=== PATIENT | female | born 1965 ===

== ENCOUNTER → 2021-08-03 | Outpatient (CLI) | payer BC, MEDICARE | END | disposition home or self-care (01) | LOC: LAB SHORT 11:04 → PLD 11:04 | DX: L08.9 Local infection of the skin and subcutaneous tissue, unspecified (principal) | CPT/HCPCS: 88305 ==

== ENCOUNTER → 2022-02-04 | Outpatient (CLI) | payer BC, MEDICARE ==
[2022-02-04 11:08] LABS: Source, Urine Clean Catch
[2022-02-04 13:04] LABS: Appearance, Urine Clear (Clear); Bilirubin, Urine Neg (Neg); Blood, Urine 1+ (Neg); Color, Urine Yellow (P-Yellow); Glucose Qualitative, Urine Neg (Neg); Ketones, Urine Neg (Neg); Leukocyte Esterase, Urine 2+ (Neg); Nitrite, Urine Neg (Neg); Protein, Urine Neg (Neg); Urobilinogen, Urine NORM (Normal)
[2022-02-04 14:34] LABS: Bacteria Few /hpf; Renal Epithelial Rare /hpf (0-Rare); Squamous Epithelial Cells Few /hpf (Few); White Blood Cells, Urine 25-50 /hpf (0-5)
== END ==
LOC: LAB 11:07 → LAB SHORT 11:07
PROVIDERS: Urology
DX: N39.0 Urinary tract infection, site not specified (principal)
CPT/HCPCS: 81001; 87077; 87086; 87186

== ENCOUNTER → 2022-10-04 | Outpatient (CLI) | payer BC, MEDICARE ==
[2022-10-04 09:01] LABS: Source, Urine Clean Catch
[2022-10-04 09:31] LABS: Appearance, Urine Hazy (Clear); Bilirubin, Urine Neg (Neg); Blood, Urine 3+ (Neg); Color, Urine Yellow (P-Yellow); Glucose Qualitative, Urine Neg (Neg); Ketones, Urine Neg (Neg); Leukocyte Esterase, Urine 3+ (Neg); Nitrite, Urine Neg (Neg); Protein, Urine 1+ (Neg); Urobilinogen, Urine NORM (Normal)
[2022-10-04 09:40] LABS: Bacteria Few /hpf; Squamous Epithelial Cells Rare /hpf (Few); White Blood Cells, Urine 50-100 /hpf (0-5)
== END | disposition home or self-care (01) ==
LOC: LAB 08:59 → LAB SHORT 08:59
PROVIDERS: Urology
DX: N39.0 Urinary tract infection, site not specified (principal)
CPT/HCPCS: 81001; 87077; 87086; 87186

== ENCOUNTER → 2023-02-10 | Outpatient (CLI) | payer BC, MEDICARE ==
[2023-02-14 21:00] LABS: CALPROTECTIN,FECAL <5 ug/g (<=49)
== END ==
LOC: LAB SHORT 12:21 → LAB 12:21
PROVIDERS: Naturopath
DX: E83.52 Hypercalcemia (principal); K52.9 Noninfective gastroenteritis and colitis, unspecified; R79.89 Other specified abnormal findings of blood chemistry
CPT/HCPCS: 83993

== ENCOUNTER → 2023-03-14 | Outpatient (CLI) | payer BC, MEDICARE ==
[2023-03-14 15:36] LABS: Appearance, Urine Clear (Clear); Bilirubin, Urine Neg (Neg); Blood, Urine Neg (Neg); Color, Urine Yellow (P-Yellow); Glucose Qualitative, Urine Neg (Neg); Ketones, Urine Neg (Neg); Leukocyte Esterase, Urine Neg (Neg); Nitrite, Urine Neg (Neg); Protein, Urine Neg (Neg); Urobilinogen, Urine NORM (Normal)
[2023-03-14 16:08] LABS: Calcium, Urine 7.7 mg/dL (< 17.5); Calcium, Urine Calculation 215.6 mg/24hrs (42.0-353.0)
== END | disposition home or self-care (01) ==
LOC: LAB 08:00 → LAB SHORT 08:00 → LAB FUT 12-09 17:15
PROVIDERS: Naturopath; Physician Assistant
DX: N39.0 Urinary tract infection, site not specified (principal); E83.52 Hypercalcemia; K52.9 Noninfective gastroenteritis and colitis, unspecified; R79.89 Other specified abnormal findings of blood chemistry; N95.1 Menopausal and female climacteric states; Z79.890 Hormone replacement therapy
CPT/HCPCS: 81003; 81050; 82340; 87086

== ENCOUNTER → 2023-04-18 | Outpatient (CLI) | payer BC, MEDICARE | LOC: LAB SHORT 08:40 | DX: N20.0 Calculus of kidney (principal) | CPT/HCPCS: 81050 ==

== ENCOUNTER → 2023-09-06 | Outpatient (CLI) | payer BC, MEDICARE ==
[2023-09-06 13:51] LABS: Creatinine Urine 46.8 mg/dL (27.00-270.00)
[2023-09-06 14:50] LABS: Calcium, Urine 8.4 mg/dL (< 17.5); Calcium, Urine Calculation 218.4 mg/24hrs (42.0-353.0)
== END ==
LOC: LAB 10:44 → LAB SHORT 10:44
PROVIDERS: Internal Medicine Endocrinology, Diabetes & Metabolism
DX: E21.0 Primary hyperparathyroidism (principal)
CPT/HCPCS: 81050; 82340; 82570